=== PATIENT | female | born 1995 | race Two or more races ===

== ENCOUNTER 2018-06-28 02:25 | Inpatient (IN) | payer OTHER ==
[~2018-06-28] VITALS: Ht 157.5 cm; Wt 68.9 kg
[2018-06-28] MEDS ORDERED: PRENATAL TABLE1 EAC4 PO (10:44)
== END 2018-06-30 18:11 | disposition home or self-care (01) | DRG 807 ==
LOC: LDR 02:25 → OB/GYN 02:25 → LDR 03:37 → OB/GYN 06-29 01:22
PROVIDERS: ADMIT Obstetrics & Gynecology
PROC: 10E0XZZ Delivery of Products of Conception, External Approach (ICD-10-PCS; principal; 2018-06-28)
PROC: 10907ZC Drainage of Amniotic Fluid, Therapeutic from Products of Conception, Via Natural or Artificial Opening (ICD-10-PCS; 2018-06-28)
PROC: 3E033VJ Introduction of Other Hormone into Peripheral Vein, Percutaneous Approach (ICD-10-PCS; 2018-06-28)
PROC: 4A1HXCZ Monitoring of Products of Conception, Cardiac Rate, External Approach (ICD-10-PCS; 2018-06-28)
DX: O80 Encounter for full-term uncomplicated delivery (principal); Z37.0 Single live birth; Z3A.38 38 weeks gestation of pregnancy